=== PATIENT | female | born 1995 | race African-American/Black ===

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

== ENCOUNTER 2018-11-09 09:11 | Inpatient (IN) | payer BC ==
[~2018-11-09] VITALS: Ht 162.6 cm; Wt 107.4 kg
--- NOTE | ~2018-11-09 | H ---
[facility] [place] [address] HISTORY AND PHYSICAL Name: TASHA DAVILA Room #: 217-P ADM IN M.R.#: [id number] Admission: 11/09/18 ������������������ Attend Phys: Lily Salazar MD Discharge: ������������������ Date of : 97 Report #: [id number] THIS REPORT FOR: //name// [facility] DATE OF SERVICE: 11/09/2018 CHIEF COMPLAINT: Chest pain for the past 2 days. HISTORY OF PRESENT ILLNESS: The patient is a very pleasant, 23-year-old, obese female with symptoms recently starting. According to the patient, the chest pain started yesterday evening, burning and pressure in the left anterior chest, and this morning, she woke up with the same chest pressure and therefore she was concerned as symptoms were not getting better and actually getting worse. The patient denies any dysphagia or heartburn associated with this. However, she has had nausea when everytime the pain is severe. She has had no emesis. The patient's mother intervened who was sitting at the bedside and is the emergency contact and DPOA in case the patient cannot make a decision. She informs me that last , the patient had severely spicy seafood with a really spicy hot sauce on it, and on Sunday, she started having the same chest burning and night and Sunday, she was again not feeling well, but the patient informs me that at this time, she had some pressure or tightness in the neck as well and on Sunday when she went from work and was walking, she felt dizzy and she had felt dizzy this weekend as well. The patient denies any hematochezia, melena, diarrhea, or constipation. She also denies any dysuria, hematuria, frequency, or urgency of urination. PAST MEDICAL HISTORY: Negative for any health problems except obesity with a BMI of 37.8. ALLERGIES: The patient has no known drug allergies. PERSONAL AND SOCIAL HISTORY: Significant for no tobacco, no alcohol. 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 CURRENT MEDICATIONS: None. FAMILY HISTORY: The patient's mother has high blood pressure. Father has diabetes, high blood pressure, congestive heart failure, and cardiomyopathy. REVIEW OF SYSTEMS: The patient denies any family history of cancer. PAST SURGICAL HISTORY: Negative for any surgical procedures. The patient's emergency contact is mother, Mrs. Chnada Davila, [phone]. [address] [address] HISTORY AND PHYSICAL Name: GIOVANNITASHA Kacey Room #: 217-P [facility] IN [facility].#: [id number] Admission: 11/09/18 ������������������ Attend Phys: Lily Salazar MD Discharge: ������������������ Date of : 97 Report #: [id number] PHYSICAL EXAMINATION: VITAL SIGNS: When the patient presented to the ER, she had a temperature of 36.4, heart rate 85, respirations 17, blood pressure 118/51, pulse oximetry 98% on room air. At the time of examination, the patient had temperature 37.4, heart rate 95, respiration 18, blood pressure 120/69, pulse oximetry 97% on room air. GENERAL: Alert and oriented to time, place and person, very pleasant, obese female with a BMI of 37.8 and is in no acute distress. HEENT: Normocephalic, atraumatic. Pupils equally round and reactive to light. Conjunctivae clear. Sclerae nonicteric. Oropharynx clear. Mucous membranes moist. NECK: Supple, no JVD, no lymphadenopathy. HEART: S1, S2 regular. No murmur, no S3, no S4. No chest wall tenderness noted. SKIN: No skin rash noted. LUNGS: Clear to auscultation bilaterally without any crackles or wheezes. ABDOMEN: Soft, nontender, and nondistended. No epigastric tenderness and obese abdomen. EXTREMITIES: No edema in both lower extremities. NEUROLOGICAL: Completely nonfocal. Cranial nerves 2-12 intact. LABORATORY DATA AND X-RAYS: The patient had WBCs of 4.1, hemoglobin 12.8, hematocrit 40.0, platelet count 156, segmented neutrophils 30%, band neutrophils 8%, lymphocytes 35, eosinophils 1%, monocytes elevated at 12, and large platelets and slight poikilocytosis noted. PT 10.1, INR 1.0, PTT 31.0. Chemistries indicate sodium 136, potassium 4.3, chloride 101, bicarbonate 26, anion gap 9, BUN 15, creatinine 0.8, estimated GFR 110, glucose 90, calcium 8.8, magnesium 1.8, total bilirubin 0.2, AST 28, ALT 30, alkaline phosphatase 75, creatinine kinase 127. Troponin I elevated at 1.15. Total protein 7.7, albumin 3.6. Lipid panel indicates triglycerides 39, cholesterol 142, LDL 82, HDL 53. TSH is 1.212. Urinalysis is completely negative for any drug screen and UA is completely negative. Chest x-ray was done and it indicates no acute cardiopulmonary abnormality. ASSESSMENT AND PLAN: 1. Chest pain, which gets worse with change in posture to supine as well as when she leans forward during cardiac exam with elevated troponin. We will go ahead and repeat 3 sets of troponin and EKG for conditional chest pain. Cardiology has been consulted by the ER physician and a GI cocktail did help with the symptoms. So, we will keep the patient n.p.o. right now and we will [facility] [address] [address] HISTORY AND PHYSICAL Name: GIOVANNITASHA Kacey Room #: 217-P ADM IN [facility].#: [id number] Admission: 11/09/18 ������������������ Attend Phys: Lily Salazar MD Discharge: ������������������ Date of : 97 Report #: [id number] write for a conditional EKG in case the patient has chest pain, and with leukocytosis and bandemia, there is a possibility that it could be pericarditis; however, the patient has absolutely no exposure to cold or any sore throat or any viral illness prior to this. We will go ahead and give treatment with Tylenol scheduled and consider getting an echocardiogram tomorrow morning, and because of a history of GI symptoms, we will go ahead and get a stool for occult blood. 2. The patient is full code and orders are written. GI prophylaxis with Pepcid and DVT prophylaxis with pneumatic compression devices. 3. Obesity with BMI 37.8. The patient will benefit from bariatric clinic assessment. ��������������������������������������������� ���������������������������������������� By: ��������������������������������������������� 1501 1531 Lily Salazar MD /nt
[2018-11-09 09:11] VITALS: BP 118/51
[~2018-11-09 09:11] MED LIST changes: +BENADRYL25 MG PO; +PREDNISONE 20 M20 MG PO
[2018-11-09 09:41] LABS: HEMOGLOBIN 12.8 gm/dL (12.0-15.0); MCH 24.3 pg (26.0-34.0); MCHC 31.9 g/dL (28.0-37.0); MCV 76.1 fL (80.0-100.0); PLATELET COUNT 156 thou/uL (150-400); RBC 5.25 mil/uL (4.20-5.00); RDW 13.9 % (10.5-14.5); WBC 4.1 thou/uL (4.0-11.0)
[2018-11-09 09:51] LABS: CALCIUM 8.8 mg/dL (8.5-10.1); CREATININE 0.8 mg/dL (0.6-1.0); POTASSIUM 4.3 mmol/L (3.5-5.1)
[2018-11-09 10:01] LABS: ALBUMIN 3.6 g/dL (3.4-5.0); TOTAL BILIRUBIN 0.2 mg/dL (<0.1-1.0); TOTAL PROTEIN 7.7 g/dL (6.4-8.2)
[2018-11-09 10:07] LABS: TROPONIN-I 1.15 ng/mL (<0.06)
[2018-11-09 10:32] LABS: ABSOLUTE NEUTROPHILS 1.6 thou/uL (1.4-8.2); ATYPICAL LYMPHS 14 %
[2018-11-09 10:35] LABS: PROTIME 10.1 Seconds (9.3-11.4)
[2018-11-09 10:36] LABS: AMP/METHAMP Negative (Negative); BARBITURATES Negative (Negative); BENZODIAZEPINES Negative (Negative); COCAINE Negative (Negative); METHADONE Negative (Negative); OPIATES Negative (Negative); PCP Negative (Negative); URINE BILIRUBIN NEGATIVE (Negative); URINE BLOOD NEGATIVE (Negative); URINE CLARITY CLEAR; URINE COLOR YELLOW; URINE GLUCOSE-RANDOM* NEGATIVE (Negative); URINE KETONES NEGATIVE (Negative); URINE LEUKOCYTES-REFLEX NEGATIVE (Negative); URINE NITRITE-REFLEX NEGATIVE (Negative); URINE PROTEIN (DIPSTICK) NEGATIVE (Negative); URINE UROBILINOGEN 0.2 E.U./dl (0.2-1.0)
[2018-11-09 10:39] LABS: ANISOCYTOSIS 1+; LARGE PLATELETS OCCASIONAL; OVALOCYTES FEW; POIKILOCYTOSIS SLIGHT
[2018-11-09 11:00] VITALS: BP 105/64
[2018-11-09 11:30] VITALS: BP 120/69
[2018-11-09 11:36] LABS: CHOLESTEROL 142 mg/dL (<200); HDL CHOLESTEROL 53 mg/dL (>40); LDL CHOLESTEROL 82 mg/dL (<100); TC:HDL 2.7 Ratio (Not establshd); TRIGLYCERIDE 39 mg/dL (<150); VLDL 8 mg/dL (<40)
[2018-11-09 16:00] VITALS: BP 90/34
--- NOTE | 2018-11-09 18:30 | NUR ---
PATIENT ARRIVED VIA W/C. ALERT AND ORIENTED X4. VSS AND SR. DENIES ANY CP ON ADMISION. ADMISSION COMPLETED AND NEW POC INTIATED. NPO FROM 1700 FOR CTA AT 1999. TROPS 1.[address] VEGA NOTIFIED, NEW ORDERS RECIEVED AND WILL CONTINUE WITH POC.
[2018-11-09 20:10] VITALS: BP 106/58
[2018-11-10 04:45] VITALS: BP 101/50; BP 1101/50; BP 125/73
--- NOTE | 2018-11-10 05:27 | NUR ---
ASSUME CARE 1900. PT/VITALS STABLE. COMPLAINS OF MILD MUSCLE PAIN IN CHEST AREA. DENIES ANY CHEST TIGHTNESS AND SOA. ASSESSMENT CHARTED. PTOGRESSING WELL WITH POC. PLAN IS POSSIBLE CATH ON SUNDAY. WILL CONTINUE TO MONITOR AND FOLLOW WITH POC
[2018-11-10 07:39] VITALS: BP 113/71
--- NOTE | 2018-11-10 08:55 | HC ---
[facility] [place] [address] CONSULTATION Name: TASHA DAVILA Room #: 217-P [facility] IN ..#: [id number] Admission: 11/09/18 ������������������ Attend Phys: Lily Salazar MD Discharge: ������������������ Date of : 97 Report #: [id number] THIS REPORT FOR: //name// [facility]: [facility] DATE OF SERVICE: 11/09/2018 INDICATION: Chest pain. HISTORY OF PRESENT ILLNESS: This is a pleasant 23-year-old female with no significant past medical history, presenting with chest pains. Two nights ago, she had spicy seafood. The next morning, she woke up with a burning sensation in the substernal area, relieved with Pepto-Bismol. Last evening, she did not have anything unusual. This morning, she woke up with a pressure in the substernal area, radiating up to the neck. She took a Tums with minimal benefit. She denies any shortness of breath or diaphoresis. On her way to the hospital, the symptoms resolved. She denies any previous episodes of angina or dyspnea. She does not exercise routinely. There is no history of dizziness, palpitations or congestion. There have been no recent episodes of fever, chills or diarrhea. PAST MEDICAL HISTORY: Denies any history of diabetes mellitus, hypertension or hypercholesterolemia. Uncle with a history of an VT in his 40s. ALLERGIES: None. CURRENT MEDICATIONS: None. SOCIAL HISTORY: Denies tobacco use, denies drug use. REVIEW OF SYSTEMS: A full 10-point review of systems performed. Only the pertinent positives and negatives are described in the HPI. PHYSICAL EXAMINATION: VITAL SIGNS: Blood pressure is 105/60, heart rate is 90 beats per minute. GENERAL APPEARANCE: An overweight female, in no acute distress. HEENT: Normocephalic, atraumatic. Oral mucosa moist. NECK: Supple. LUNGS: Clear to auscultation. CARDIAC: Regular rate and rhythm, S1, S2 positive. ABDOMEN: Soft, nontender. EXTREMITIES: No edema, no cyanosis. NEUROLOGIC: Alert and oriented x 3. ECG reveals sinus rhythm, low voltage, poor R-wave progression, nonspecific [facility] [address] [place] [address] CONSULTATION Name: GIOVANNITASHA Kacey Room #: 217-P ADM IN ..#: [id number] Admission: 11/09/18 ������������������ Attend Phys: Lily Salazar MD Discharge: ������������������ Date of : 97 Report #: [id number] T-wave abnormality. LABORATORY VALUES: White count 4.1, hemoglobin is 12.8. Troponin is 1.15. Urine screen is negative. ASSESSMENT AND PLAN: 1. Chest pain syndrome, symptoms may be related to reflux. However, the troponin is minimally elevated, but the ECG does not show any acute ST segment changes. It is hard to believe at her age, that she already has coronary artery disease. She does not have any risk factors. Another consideration is a coronary dissection. We will need a repeat troponin level and echocardiogram. We will also need an ischemic evaluation. 2. Family history, the lipid panel reveals an LDL level that is below 100. 3. Gastroesophageal reflux disease, we would manage with a PPI. ��������������������������������������������� <ELECTRONICALLY SIGNED> ���������������������������������������� By: Dale Ca MD ��������������������������������������������� 11/10/18 0855 1240 0049 Dale Ca MD /nt
--- NOTE | 2018-11-10 10:50 | EKG ---
[address] [place] [address] ELECTROCARDIOGRAM REPORT Name: TASHA DAVILA Room #: 217-P ADM IN M.R.#: [id number] ������������������ Admission: 11/09/18 ������������������ Attend Phys: Lily Salazar MD Discharge: ������������������ Date of : 97 Report #: [id number] ����������������������������������������������������������������� [id number] THIS REPORT FOR: //name// 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 : 1995 Requested By: Wayne Wilcox Order Number: [id number] MD: Dale Ca Measurements Intervals [place] Rate: 78 P: 31 NE: 168 QRS: -9 QRSD: 96 T: 11 QT: 361 QTc: 412 Interpretive Statements Sinus rhythm Low voltage, precordial leads Nonspecific T-wave abnormalities No previous ECG available for comparison Electronically Signed On 11-10-2018 10:50:21 CDT by Dale Ca [email or web address] ��������������������������������������������� <ELECTRONICALLY SIGNED> ���������������������������������������� By: Dale Ca MD ��������������������������������������������� 11/10/18 1050 0921 0921 Dale Ca MD /MARIAM
--- NOTE | 2018-11-10 10:52 | EKG ---
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 : 1995 Requested By: Lily Salazar Order Number: [id number] MD: Dale Ca Measurements Intervals [place] Rate: 89 P: 35 [place]: 179 QRS: -11 QRSD: 105 T: 7 QT: 355 QTc: 432 Interpretive Statements Sinus rhythm ST elev, probable normal early repol pattern No previous ECG available for comparison Electronically Signed On 11-10-2018 10:52:39 CDT by Dale Ca [email or web address] ��������������������������������������������� <ELECTRONICALLY SIGNED> ���������������������������������������� By: Dale Ca MD ��������������������������������������������� 11/10/18 1052 1458 1458 Dale Ca MD /MARIAM
[2018-11-10 12:26] VITALS: BP 113/64
--- NOTE | 2018-11-10 18:33 | NUR ---
PATIENT ALERT AND ORIENTED X4. VSS. C/O CP X1 TODAY AND IT WAS RESOLVED IMMEDIATLEY, EKG DONE AND NO NEW CHANGES NOTED. AND WILL CONTINUE WITH POC.
[2018-11-10 19:44] VITALS: BP 108/67
[2018-11-11 04:06] VITALS: BP 109/60
--- NOTE | 2018-11-11 04:08 | NUR ---
RECEIVED PT'S AT 1900; PT. AOX4; RELATIVE AT THE BED SIDE; DURING ASSESSMENT NO C/O PAIN; HS MEDICATION GIVEN; REFUSED HEPARIN; ST. PT'S MOTHER ASKED DR. VEGA IF HEPARIN NEEDED; DR. VEGA ST. NO; IV DRESSING CHANGED; FLUIDS CONNECT BACK; PT. C/O ITCHINESS OVER FACE; EDUCATED TO NOTIFIED IF INCREASED; AROUND 0; PT. REQUESTED NURSE IN ROOM; PT'S MOTHER ON THE PHONE; ON SPEAKER; UPSET; SHOUT NOT BODY TALK TO HER ABOUT CHOLESTEROL MEDICATION; SHOUT "WHO ORDER THAT"; BASED ON CHARTING; EXPLAINED MEDICATION WAS ORDERED BY HOSPITALIST; SHOUT "THIS IS MY BABY"; PER CHART MEDICATION ORDERED ON 11/10/18 EARLY ON THE MORNING; MOTHER & PT. INFORMED; ST. DISSCUSED WITH DR. VEGA NO NEED FOR HEPARIN; ST. "HE SAID EVERYTHING WAS OK"; EDUCATED ABOUT HOSPITALIST CURRENTLY MANAGING HEPARIN & CHOLESTEROL MEDICATION; EDUCATED ABOUT DVT PROFILAXIS; EDUCATED ABOUT THE INCREASE RISK OF DVT DUE TO DECREASE ACTIVITY; MOTHER ON THE PHONE SHOUT "I AM GETTING DRESS RIGHT NOW"; PT. & RELATIVE EDUCATED ABOUT DISTRICT COURT REPORTER & HOSPITALIST FOCUS; ABOUT ONE HOUR LATER NURSE REQUESTED IN ROOM; MOTHER AT THE BED SIDE; PT. ST. INCREASE ITCHINESS OVER FACE & SCALP; PT'S MOTHER ST. PT. SHOWING SOME REDNESS AROUND CHEEKS; PT. REMAINED OF CALLING IF ITCHINESS INCREASED; ST. "I HAD THIS BEFORE YOU GIVE MED THE MEDICATION"; "I DO NOT KNOW"; ASKED IF SIMPTOMS STARTED AFTER EATING OR HAVING A MEDICATION; PT. ST. DONT KNOWING; OFFER BENADRYL FOR ITCHINESS; PT. NOT SURE; ST. "SO MANY MEDICATIONS"; RELATIVES ENCOURAGING PT. TO HAVE SOME BENADRYL; PT. EDUCATED ABOUT ABILITY TO MAKE HER OWN HEALTH CARE CHOISES; RELATIVES AGREED & UNDERSTAND; PT. AGREED TAKING BENADRIL; HOUSEKEEPING MANAGER NOTIFIED; ORDERS RECEIVED; PT. RESTING WITH EYES CLOSED AFTER MIDNIGHT; C/O NECK PAIN AROUND 0330; WARM TOWEL GIVEN; MONITORING; ASSESSMENT CHARGED; FOLLOWING POC; WILL PASS ON REPORT.
[2018-11-11 05:27] LABS: HEMATOCRIT 36.1 % (37.0-47.0); HEMOGLOBIN 11.5 gm/dL (12.0-15.0); MCH 24.2 pg (26.0-34.0); MCV 75.8 fL (80.0-100.0); PLATELET COUNT 167 thou/uL (150-400); RBC 4.77 mil/uL (4.20-5.00); RDW 13.8 % (10.5-14.5); WBC 4.5 thou/uL (4.0-11.0)
[2018-11-11 05:45] LABS: ALBUMIN 3.3 g/dL (3.4-5.0); CALCIUM 8.9 mg/dL (8.5-10.1); CREATININE 0.8 mg/dL (0.6-1.0); MAGNESIUM 1.9 mg/dL (1.8-2.4); PHOSPHORUS 3.6 mg/dL (2.5-4.9); POTASSIUM 3.9 mmol/L (3.5-5.1); TOTAL BILIRUBIN 0.3 mg/dL (<0.1-1.0)
[2018-11-11 07:07] LABS: GLYCOHEMOGLOBIN (HGB A1C) 5.2 % (4.8-5.6)
--- NOTE | 2018-11-11 07:52 | EKG ---
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 : 1995 Requested By: Lily Salazar Order Number: [id number] MD: Kaiden Godfrey Measurements Intervals [place] Rate: 96 P: 54 [place]: 169 QRS: -6 QRSD: 94 T: 20 QT: 340 QTc: 430 Interpretive Statements Sinus rhythm Poor R wave progression Compared to ECG 11/09/2018 14:58:42 Repolarization abnormality is no longer present Electronically Signed On 11-11-2018 7:52:19 CDT by Kaiden Godfrey [email or web address] ��������������������������������������������� <ELECTRONICALLY SIGNED> ���������������������������������������� By: Kaiden Godfrey MD, [facility] ��������������������������������������������� 11/11/18 0752 03 03 Kaiden Godfrey MD, [facility] /EPI
--- NOTE | 2018-11-11 08:55 | 2DMMODE ---
[facility] [address] [place] [address] 2 D/M-MODE ECHOCARDIOGRAM Name: TASHA DAVILA Room #: 217-P [facility] IN ..#: [id number] ������������� Admission: 11/09/18 ������������� Attend Phys: Lily Salazar, Discharge: ��� ������������� ��� Date of : [birth year] Date of Service: 11/11/18 0855 �� Report #: [id number] �������� ��������������������������������������������[id number] THIS REPORT FOR: //name// APPROVED REPORT Study performed: 11/11/2018 08:14:35 EXAM: Comprehensive 2D, Doppler, and color-flow Echocardiogram Patient Location: Echo lab Room #: [facility] Status: routine BSA: 2.10 HR: 77 bpm BP: 109/60 mmHg Rhythm: NSR/Arrhythmia Other Information Study Quality: Good Indications Chest Pain 2D Dimensions RVDd: 34.43 mm IVSd: 10.37 (7-11mm) LVOT Diam: 21.44 (18-24mm) LVDd: 43.56 mm PWd: 10.09 (7-11mm) Ascending Ao: 30.51 (22-36mm) LVDs: 27.06 (25-40mm) Aortic Root: 31.11 mm Volumes Left Atrial Volume (Systole) Single Plane 4CH: 26.94 mL Single Plane 2CH: 44.77 mL LA ESV Index: 18.00 mL/m2 Aortic Valve AoV Peak Puneet.: 1.36 m/s AO Peak Gr.: 7.43 mmHg LVOT Max P.72 mmHg LVOT Max V: 1.20 m/s LUCA Vmax: 3.17 cm2 Mitral Valve E/A Ratio: 1.5 MV Decel. Time: 208.71 ms MV E Max Puneet.: 0.85 m/s [facility] [address] [place] [address] 2 D/M-MODE ECHOCARDIOGRAM Name: TASHA DAVILA Room #: 217-P [facility] IN [facility].#: [id number] ������������� Admission: 11/09/18 ������������� Attend Phys: Lily Salazar, Discharge: ��� ������������� ��� Date of : [birth year] Date of Service: 11/11/18 0855 �� Report #: [id number] �������� ��������������������������������������������[id number] MV A Puneet.: 0.55 m/s MV PHT: 60.53 ms IVRT: 55.36 ms Pulmonary Valve PV Peak Puneet.: 1.41 m/s PV Peak Gr.: 7.99 mmHg Pulmonary Vein P Vein S: 0.73 m/s P Vein D: 0.62 m/s P Vein S/D Ratio: 1.18 Tricuspid Valve TR Peak Puneet.: 1.97 m/s RAP Estimate: 5.00 mmHg TR Peak Gr.: 15.59 mmHg PA Pressure: 21.00 mmHg Left Ventricle The left ventricle is normal size. There is normal LV segmental wall motion. There is normal left ventricular wall thickness. Left ventricular systolic function is normal. LVEF is 60-65%. The left ventricular diastolic function is normal. Right Ventricle The right ventricle is normal size. The right ventricular systolic function is normal. Atria The left atrium size is normal. The right atrium size is normal. Aortic Valve The aortic valve is normal in structure. No aortic regurgitation is present. There is no aortic valvular stenosis. Mitral Valve The mitral valve is normal in structure. Trace mitral regurgitation. Tricuspid Valve The tricuspid valve is normal in structure. Trace tricuspid regurgitation. Estimated PAP is 20-25mmHg. Pulmonic Valve The pulmonary valve is normal in structure. Mild pulmonic regurgitation. [facility] [address] [place] [address] 2 D/M-MODE ECHOCARDIOGRAM Name: TASHA DAVILA Room #: 217-P [facility] IN ..#: [id number] ������������� Admission: 11/09/18 ������������� Attend Phys: Lily Salazar, Discharge: ��� ������������� ��� Date of : [birth year] Date of Service: 11/11/18 0855 �� Report #: [id number] �������� ��������������������������������������������[id number] [place] Vessels The aortic root is normal in size. The ascending aorta is normal in size. IVC is normal in size and collapses >50% with inspiration. Pericardium There is no pericardial effusion. <Conclusion> Left ventricular systolic function is normal. There is normal LV segmental wall motion. LVEF is 60-65%. Normal diastolic function Structural valvular disease was absent. No significant regurgitant or stenotic lesions. Trace tricuspid regurgitation. Estimated pulmonary artery pressure of 20-25mmHg. There is no pericardial effusion. ��������������������������������������������� <ELECTRONICALLY SIGNED> ���������������������������������������� By: Kaiden Godfrey MD, [facility] ��������������������������������������������� 11/11/18854 4 4 Kaiden Godfrey MD, [facility] /INF
[2018-11-11 08:57] LABS: ABSOLUTE NEUTROPHILS 1.4 thou/uL (1.4-8.2); ATYPICAL LYMPHS 9 %; PLATELET ESTIMATE NORMAL
[2018-11-11 09:40] VITALS: BP 124/59
--- NOTE | 2018-11-11 10:06 | NUR ---
RD consult received for pt class III obesity, BMI 40.5. Young age 23, admit with chest pain and undergoing current cardiac workup. Lipids wnl. Visit with pt this am, stated she is nervous being here, only requested written information on cardiac diet-provided with RD name/number to follow up for questions if pt desires. Low nutrition risk
[2018-11-11 13:16] VITALS: BP 103/55
[2018-11-11 16:34] VITALS: BP 120/62
--- NOTE | 2018-11-11 18:25 | NUR ---
ASSUMED CARE AT SHIFT CHANGE, ALERT AND ORIENTED X4. VSS AND DENIES CP. PATIENT MOTHER STATED THAT SHE IS CONFUSED BAOUT PATIENT DX AFTER DR VEGA SPOKE WITH. DR DAVIS AND [facility]ARDIOLOG[facility] LIGHTING DESIGNER AT BEDSIDE AND EXPLAINED TO PATIENT AND FAMILY IN DETAILS ABOUT SCHEDULLED TEST AND DX. 1ST PART OF NUC MED STRESS TEST COMPLETED TODAY, AND 2ND TO BE DONE IN THE AM. C/O OF THE IV SITE, RENAN FROM IV TEAM INSERTED NEW IV. PATIENT STATED THAT SHE VERY ANXIOUS BEING HERE AND SHE WANTS TO GO HOME, DR DAVIS IS AWARE. AND WILL CONTINUE WITH POC.
[2018-11-11 20:02] VITALS: BP 106/52
[2018-11-12 03:35] VITALS: BP 101/56
--- NOTE | 2018-11-12 04:21 | NUR ---
ASSESSMENT DOCUMENTED.PT BEEN RESTING IN NO ACUTE DISTRESS,MOM AT BEDSIDE,PT DENIES CHEST PAIN.C/O IV SITE PAIN,IV SITE W/O REDNESS OR S/SX OF INFECTION,IV D/CD ANOTHER IV STARTED ON THE RIGHT FA.PT C/O THE SAME KIND OF PAIN,APPLIED HEAT AND ICE,IV PATENT.PT EDUCATED ON THE IMPORTANCE O HAVING A WORKING IV AND THE RISK OF MUTIPLE POKES,VOICED UNDERSTANDING,UP AD ALVERTO.NPO AFTER MIDNOC.PT TO HAVE PART 2 OF STRESS TEST TODAY WITH POSSIBLE DISCHARGE AFTER IF STRESS TEST NORMAL.
[2018-11-12 08:41] VITALS: BP 112/56
[2018-11-12 12:41] VITALS: BP 100/55
[2018-11-12] MEDS ORDERED: PEPCID20 MG PO (15:47)
[2018-11-12] MEDS ORDERED: WORK RELEASE (17:23)
[2018-11-12 17:58] VITALS: BP 100/55
--- NOTE | 2018-11-12 18:17 | NUR ---
ASSESSMENT CHARTED, VSS, ALERT AND ORIENTED X 4, NO COMPLAINTS OF PAIN OR SOB. DISCHARGE INSTRUCTIONS AND PRESCRIPTIONS GIVEN TO PATIENT, STATED UNDERSTANDING, ESCORTED FROM HOSPITAL BY WHEELCHAIR ACCOMPANIED BY MOTHER
== END 2018-11-12 18:38 | disposition home or self-care (01) | DRG 313 ==
LOC: ER 09:11 → EROBS 10:39 → 2N 10:39
PROVIDERS: Emergency Medicine; ADMIT Internal Medicine
DX: R07.89 Other chest pain (principal); Z68.41 Body mass index [BMI] 40.0-44.9, adult; K21.9 Gastro-esophageal reflux disease without esophagitis; E66.9 Obesity, unspecified; R79.89 Other specified abnormal findings of blood chemistry; Z82.49 Family history of ischemic heart disease and other diseases of the circulatory system
CPT/HCPCS: 10194